=== PATIENT | male | born 1970 | race Asian ===

== ENCOUNTER 2016-08-23 22:00 | Emergency (ER) | payer OTHER ==
[~2016-08-23] VITALS: Ht 167.6 cm; Wt 109.0 kg
[2016-08-23 22:08] VITALS: TEMP 37.1; Ht 167.6 cm; Wt 109.0 kg
--- NOTE | 2016-08-23 22:45 | EMERGENCY ROOM VISIT NOTE ---
History Report prepared by Tequila: Shala Smith Under the Supervision of: Dr. Giselle Pineda M.D. First contact with patient: 22:17 Chief Complaint: SHORTNESS OF BREATH Stated Complaint: SOB Nursing Triage Summary: see triage note. pt c/o sob and acid reflux History of Present Illness The patient is a 45 year old male who presents to the Emergency Room with complaints of constant shortness of breath beginning a few weeks ago. The patient states that he has been having pain with eating for the last 3 weeks. He reports that he tried to quit smoking 1 month ago and was seen here for a panic attack from quitting smoking. The patient notes associated belching, constipation, acid reflux, right sided slight abdominal pain. He denies any vomiting. Source of History: patient Onset: a few weeks ago Position: other (global) Quality: other (SOB) Timing: constant Modifying Factors (Worsening): eating Associated Symptoms: + abdominal pain, No vomiting Note: The patient notes associated belching, constipation, acid reflux. Review of Systems See HPI for pertinent positives & negatives. A total of 10 systems reviewed and were otherwise negative. 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 Family History Diabetes mellitus Hypertension Social History Smoking Status: Current Every Day Smoker Alcohol Use: none Drug Use: none Housing Status: lives alone Occupation Status: disabled Current/Historical Medications Scheduled Pantoprazole (Protonix), 40 MG PO DAILY Allergies Coded Allergies: No Known Allergies (Unverified , 08/23/16) Physical Exam Vital Signs Date Time Temp Pulse Resp B/P Pulse Ox O2 Delivery O2 Flow Rate FiO2 08/24/16 00:53 87 18 117/83 96 08/23/16 23:02 85 22 129/97 99 Room Air 08/23/16 22:30 87 08/23/16 22:17 Room Air 100 08/23/16 22:08 37.1 98 24 131/96 100 Room Air Physical Exam Vital signs reviewed. General: Well-appearing, obese, anxious, rambling. HEENT: No scleral icterus, PERRLA, neck supple. Atraumatic. Cardiovascular: Regular rate and rhythm, no extra sounds. Pulmonary: Clear to auscultation bilaterally, normal work of breathing. Abdomen: Soft, nontender, nondistended, positive bowel sounds. Musculoskeletal: Atraumatic, no peripheral edema. Neurologic: Patient awake alert and oriented x 3 Skin: Warm, dry, no rash Medical Decision & Procedures ER Provider Diagnostic Interpretation: US results as stated below per my review and radiologist interpretation: US RUQ Cholelithiasis. Contracted gallbladder with nonspecific borderline gallbladder wall thickness. Common bile duct within normal limits. Fatty Liver with hypoechogenicity adjacent to the gallbladder fossa, possible focal fatty sparing. Small right renal cyst. No right hydronephrosis. Radiologist: Jazzmine Lozano M.D. Laboratory Results 08/23/16 22:52 Red Blood Count 5.28, Mean Corpuscular Volume 89.2, Mean Corpuscular Hemoglobin 30.7, Mean Corpuscular Hemoglobin Concent 34.4, Mean Platelet Volume 9.2, Neutrophils (%) (Auto) 64.7, Lymphocytes (%) (Auto) 28.3, Monocytes (%) (Auto) 5.2, Eosinophils (%) (Auto) 1.3, Basophils (%) (Auto) 0.3, Neutrophils # (Auto) 8.16, Lymphocytes # (Auto) 3.57, Monocytes # (Auto) 0.66, Eosinophils # (Auto) 0.17, Basophils # (Auto) 0.04 08/23/16 22:52 Test 08/23/16 22:52 White Blood Count 12.63 K/uL (4.8-10.8) Red Blood Count 5.28 M/uL (4.7-6.1) Hemoglobin 16.2 g/dL (14.0-18.0) Hematocrit 47.1 % (42-52) Mean Corpuscular Volume 89.2 fL (80-100) Mean Corpuscular Hemoglobin 30.7 pg (25-34) Mean Corpuscular Hemoglobin Concent 34.4 g/dl (32-36) Platelet Count 314 K/uL (130-400) Mean Platelet Volume 9.2 fL (7.4-10.4) Neutrophils (%) (Auto) 64.7 % Lymphocytes (%) (Auto) 28.3 % Monocytes (%) (Auto) 5.2 % Eosinophils (%) (Auto) 1.3 % Basophils (%) (Auto) 0.3 % Neutrophils # (Auto) 8.16 K/uL (1.4-6.5) Lymphocytes # (Auto) 3.57 K/uL (1.2-3.4) Monocytes # (Auto) 0.66 K/uL (0.11-0.59) Eosinophils # (Auto) 0.17 K/uL (0-0.5) Basophils # (Auto) 0.04 K/uL (0-0.2) RDW Standard Deviation 46.2 fL (36.4-46.3) RDW Coefficient of Variation 14.1 % (11.5-14.5) Immature Granulocyte % (Auto) 0.2 % Immature Granulocyte # (Auto) 0.03 K/uL (0.00-0.02) Anion Gap 10.0 mmol/L (3-11) Est Creatinine Clear Calc Drug Dose 143.2 ml/min Estimated GFR () 128.8 Estimated GFR (Non- 111.1 BUN/Creatinine Ratio 17.4 (10-20) Calcium Level 9.0 mg/dl (8.5-10.1) Magnesium Level 2.5 mg/dl (1.8-2.4) Total Bilirubin 0.6 mg/dl (0.2-1) Direct Bilirubin 0.2 mg/dl (0-0.2) Aspartate Amino Transf (AST/SGOT) 28 U/L (15-37) Alanine Aminotransferase (ALT/SGPT) 61 U/L (12-78) Alkaline Phosphatase 78 U/L (45-117) Total Creatine Kinase 114 U/L (39-308) Creatine Kinase MB < 0.5 ng/ml (0.5-3.6) Creatine Kinase MB Ratio (0-3.0) Troponin I < 0.015 ng/ml (0-0.045) Total Protein 7.6 gm/dl (6.4-8.2) Albumin 3.7 gm/dl (3.4-5.0) Laboratory results per my review. ECG Indication: other (SOB) Rate (beats per minute): 93 Rhythm: normal sinus Findings: no acute ischemic change, no ectopy, other (sinus arrythmia, poor quality baseline for interpretation) ED Course 2225: Past medical records reviewed. The patient was evaluated in room A12. A complete history and physical examination was performed. 2246: Vistaril Tab 50mg PO. 0020: I reevaluated the patient and discussed his test results. 0040: Upon reevaluation, the patient appeared to have improvement of his symptoms. I discussed findings with the patient. He verbalized agreement of the treatment plan. The patient was discharged home. Medical Decision Chest pain: Acute coronary syndrome, pulmonary embolus, aortic dissection, musculoskeletal pain, pneumonia, pleural effusion, pneumothorax, anxiety, OCD, metabolic abnormality, substance abuse. This patient was evaluated and appeared to be significantly anxious. IV access was obtained and laboratory work was drawn. 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 Laboratory work reveals no significant abnormalities. Ultrasound of right upper quadrant reveals cholelithiasis without evidence of acute cholecystitis. The patient had a chest x-ray several days ago, therefore no repeat film was obtained. Patient was advised to restart his PPI, he had many questions regarding his gastritis, "gas," and a link to his shortness of breath. The patient has had many visits to the emergency department recently. I do think that anxiety is a great part of his presentation. He states he has seen mental health but feels that he went "too far" as he does not feel he has any psychological issues. The patient was encouraged to restart his PPI, given a prescription for Protonix 40 mg daily. He will follow-up with his primary care provider and GI if symptoms persist. He will return to the ER for worsening of symptoms or any medical concerns. Impression Primary Impression: Cholelithiasis Additional Impressions: SOB (shortness of breath), Gastritis Scribe Attestation The scribe's documentation has been prepared under my direction and personally reviewed by me in its entirety. I confirm that the note above accurately reflects all work, treatment, procedures, and medical decision making performed by me. Departure Information Dispostion Home / Self-Care Prescriptions Pantoprazole (Protonix) 40 Mg Tab 40 MG PO DAILY, #30 TAB Prov: Giselle Pineda M.D. 08/24/16 Referrals No Doctor, Assigned (PCP) Forms HOME CARE DOCUMENTATION FORM, IMPORTANT VISIT INFORMATION Patient Instructions A Signature Page, My [facility] Additional Instructions Diagnosis: Cholelithiasis, shortness of breath, gastritis Protonix 40 mg daily. Avoid fatty foods. Drink plenty of clear fluids. Follow-up with your primary care provider as scheduled this week. Return to the ER for worsening of symptoms or any medical concerns.
[2016-08-23] MEDS ORDERED: hydrOXYzine HCL 25 MG TAB PO STA (22:46)
[2016-08-23 23:00] LABS: BASO % 0.3 %; BASO ABS # 0.04 K/uL (0-0.2); COMPLETE YES; EOS % 1.3 %; HEMATOCRIT 47.1 % (42-52); IG% 0.2 %; LYMPH % 28.3 %; LYMPH ABS # 3.57 K/uL (1.2-3.4); MEAN CELL VOLUME 89.2 fL (80-100); MEAN CORPUSCULAR HEMOGLOBIN 30.7 pg (25-34); MEAN CORPUSCULAR HGB CONC 34.4 g/dl (32-36); MEAN PLATELET VOLUME 9.2 fL (7.4-10.4); MONO % 5.2 %; NEUT % 64.7 %; PLATELET COUNT 314 K/uL (130-400); RED BLOOD COUNT 5.28 M/uL (4.7-6.1); WHITE BLOOD COUNT 12.63 K/uL (4.8-10.8)
[2016-08-23 23:19] LABS: ALT/SGPT 61 U/L (12-78); BLOOD UREA NITROGEN 13 mg/dl (7-18); BUN/CREATININE RATIO 17.4 (10-20); CARBON DIOXIDE 27 mmol/L (21-32); CHLORIDE 104 mmol/L (98-107); CREATININE 0.77 mg/dl (0.60-1.40); GLUCOSE 101 mg/dl (70-99); MAGNESIUM 2.5 mg/dl (1.8-2.4); POTASSIUM 3.7 mmol/L (3.5-5.1); SODIUM 141 mmol/L (136-145)
[2016-08-23 23:24] LABS: ALKALINE PHOSPHATASE 78 U/L (45-117); AST/SGOT 28 U/L (15-37)
[2016-08-24] MEDS ORDERED: PANT40TA PO (00:18)
[2016-08-24 00:53] VITALS: BP 117/83; PULSE 87; O2SAT 96
--- NOTE | 2016-08-24 06:37 | DIAGNOSTIC IMAGING REPORT ---
BILIARY ULTRASOUND CLINICAL HISTORY: Right upper quadrant abdominal pain COMPARISON STUDY: No previous studies for comparison. FINDINGS: The pancreas appears normal as visualized. The liver is of increased echogenicity. This is a nonspecific finding most often seen in hepatic steatosis. There is an 18 mm hypoechoic focus within the right lobe of the liver. There is no right-sided hydronephrosis. There is an 16 mm hypoechoic right renal nodule, likely representing a cyst although the lesion does contain a few internal echoes. There is cholelithiasis. There is borderline gallbladder wall thickening. There is no ductal dilatation. The common bile duct measures 5 mm. IMPRESSION: 1. Increased hepatic echogenicity, consistent with hepatic steatosis 2. 18 mm hepatic lesion adjacent to the gallbladder. Diagnostic considerations include focal fatty sparing versus a true mass. 3. Cholelithiasis. Borderline gallbladder wall thickening. 4. No evidence of ductal dilatation 5. 16 mm hypoechoic right renal lesion, likely representing a cyst, although the lesion does contain a few internal echoes. Electronically signed by: Zach Steinberg M.D. 08/24/2016 6:36 AM
== END 2016-08-24 00:55 | disposition home or self-care (01) ==
LOC: C.EDB 22:02 → C.EDA 08-24 00:55
DX: K80.20 Calculus of gallbladder without cholecystitis without obstruction (principal); R06.02 Shortness of breath; K29.70 Gastritis, unspecified, without bleeding; F17.200 Nicotine dependence, unspecified, uncomplicated; K21.9 Gastro-esophageal reflux disease without esophagitis

== ENCOUNTER 2016-10-06 03:08 | Emergency (ER) | payer OTHER ==
[~2016-10-06] VITALS: Ht 167.6 cm; Wt 109.2 kg
[~2016-10-06 03:08] MED LIST: PANT40TA PO
[2016-10-06 03:14] VITALS: TEMP 37.2; Ht 167.6 cm; Wt 109.2 kg
[2016-10-06] MEDS ORDERED: ALUMINUM/MAGNESIUM SUSP 30 ML UDC PO STA (03:33)
[2016-10-06] MEDS ORDERED: KETOROLAC TROMETHAMINE 30 MG/ML VIAL IV STA (03:33)
[2016-10-06] MEDS ORDERED: LIDOCAINE HCL 2% VISC SOLN 20 ML UDC PO STA (03:33)
[2016-10-06 04:22] VITALS: O2SAT 94
[2016-10-06 04:33] LABS: BASO % 0.3 %; BASO ABS # 0.04 K/uL (0-0.2); COMPLETE YES; HEMATOCRIT 46.1 % (42-52); IG% 0.2 %; LYMPH ABS # 3.81 K/uL (1.2-3.4); MEAN CORPUSCULAR HEMOGLOBIN 31.7 pg (25-34); MEAN CORPUSCULAR HGB CONC 35.6 g/dl (32-36); MEAN PLATELET VOLUME 9.3 fL (7.4-10.4); MONO % 6.1 %; NEUT % 63.4 %; PLATELET COUNT 315 K/uL (130-400); RED BLOOD COUNT 5.18 M/uL (4.7-6.1); WHITE BLOOD COUNT 13.15 K/uL (4.8-10.8)
[2016-10-06] MEDS ORDERED: NICO14DI9 TOP (04:35)
[2016-10-06 04:43] LABS: PROTHROMBIN TIME (PATIENT) 10.7 SECONDS (9.0-12.0)
[2016-10-06 04:50] LABS: ALT/SGPT 54 U/L (12-78); AST/SGOT 26 U/L (15-37); BLOOD UREA NITROGEN 12 mg/dl (7-18); BUN/CREATININE RATIO 14.9 (10-20); CALCIUM 8.7 mg/dl (8.5-10.1); CARBON DIOXIDE 27 mmol/L (21-32); CHLORIDE 105 mmol/L (98-107); CREATININE 0.82 mg/dl (0.60-1.40); GLUCOSE 105 mg/dl (70-99); POTASSIUM 3.7 mmol/L (3.5-5.1); SODIUM 140 mmol/L (136-145)
[2016-10-06 05:00] LABS: ALKALINE PHOSPHATASE 75 U/L (45-117); CKMB/CK RATIO 0.6 (0-3.0); THYROID STIMULATING HORMONE 0.735 uIu/ml (0.300-4.500)
--- NOTE | 2016-10-06 05:22 | EMERGENCY ROOM VISIT NOTE ---
History Report prepared by Chrisibpatrice: Ronny Montez Under the Supervision of: Dr. Michael Xiong D.O. First contact with patient: 03:23 Chief Complaint: GI ASSESSMENT Stated Complaint: STOMACH PAIN History of Present Illness The patient is a 46 year old male who presents to the Emergency Room with complaints of persistent acid reflux for the past several days. The patient notes that when he wakes up in the morning he feels chest pain and shortness of breath. He also complains of headache and has increased mucous in his esophagus that causes him to cough. The patient notes increased frequency of burping. The patient attributes his symptoms to his stomach and does not feel that his symptoms are flu-related. The patient was taking Protonix 40 mg prior to being switched to Omeprazole 10 mg 4-5 days ago. The patient has a family history of stomach problems. Source of History: patient Onset: several days Position: other (GI) Quality: other (acid reflux) Timing: other (persistent) Associated Symptoms: + SOB, + chest pain, + cough Review of Systems See HPI for pertinent positives & negatives. A total of 10 systems reviewed and were otherwise negative. 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 Family History Diabetes mellitus Hypertension Social History Smoking Status: Never Smoker Alcohol Use: none Drug Use: none Housing Status: lives alone Occupation Status: disabled Current/Historical Medications Scheduled Nicotine (Nicotine), 1 PATCH TOP DAILY Pantoprazole (Protonix), 40 MG PO DAILY Allergies Coded Allergies: No Known Allergies (Unverified , 10/06/16) Physical Exam Vital Signs Date Time Temp Pulse Resp B/P Pulse Ox O2 Delivery O2 Flow Rate FiO2 10/06/16 05:49 81 16 129/81 99 10/06/16 04:22 94 Room Air 10/06/16 04:22 87 18 138/84 98 Room Air 10/06/16 03:50 96 10/06/16 03:14 37.2 101 16 128/87 98 Room Air Physical Exam CONSTITUTIONAL/VITAL SIGNS: Reviewed / noted above. GENERAL: Non-toxic in appearance. INTEGUMENTARY: Warm, dry, and [place]. HEAD: Normocephalic. EYES: without scleral icterus or trauma. ENT/OROPHARYNX: clear and moist. LYMPHADENOPATHY/NECK: Is supple without lymphadenopathy or meningismus. RESPIRATORY: Lungs clear and equal. CARDIOVASCULAR: Regular rate and rhythm. GI/ABDOMEN: Soft and nontender. No organomegaly or pulsatile mass. No rebound or guarding. Normal bowel sounds. EXTREMITIES: Warm and well perfused. BACK: No CVA tenderness. NEUROLOGICAL: Intact without focal deficits. PSYCHIATRIC: normal affect. MUSCULOSKELETAL: Normally developed with good muscle tone. Medical Decision & Procedures ER Provider Diagnostic Interpretation: X ray results and stated below per my interpretation. CHEST ONE VIEW PORTABLE: No acute disease, no pneumothorax, no pneumonia. Laboratory Results 10/06/16 04:05 Red Blood Count 5.18, Mean Corpuscular Volume 89.0, Mean Corpuscular Hemoglobin 31.7, Mean Corpuscular Hemoglobin Concent 35.6, Mean Platelet Volume 9.3, Neutrophils (%) (Auto) 63.4, Lymphocytes (%) (Auto) 29.0, Monocytes (%) (Auto) 6.1, Eosinophils (%) (Auto) 1.0, Basophils (%) (Auto) 0.3, Neutrophils # (Auto) 8.35, Lymphocytes # (Auto) 3.81, Monocytes # (Auto) 0.80, Eosinophils # (Auto) 0.13, Basophils # (Auto) 0.04 10/06/16 04:05 Test 10/06/16 04:05 White Blood Count 13.15 K/uL (4.8-10.8) Red Blood Count 5.18 M/uL (4.7-6.1) Hemoglobin 16.4 g/dL (14.0-18.0) Hematocrit 46.1 % (42-52) Mean Corpuscular Volume 89.0 fL (80-100) Mean Corpuscular Hemoglobin 31.7 pg (25-34) Mean Corpuscular Hemoglobin Concent 35.6 g/dl (32-36) Platelet Count 315 K/uL (130-400) Mean Platelet Volume 9.3 fL (7.4-10.4) Neutrophils (%) (Auto) 63.4 % Lymphocytes (%) (Auto) 29.0 % Monocytes (%) (Auto) 6.1 % Eosinophils (%) (Auto) 1.0 % Basophils (%) (Auto) 0.3 % Neutrophils # (Auto) 8.35 K/uL (1.4-6.5) Lymphocytes # (Auto) 3.81 K/uL (1.2-3.4) Monocytes # (Auto) 0.80 K/uL (0.11-0.59) Eosinophils # (Auto) 0.13 K/uL (0-0.5) Basophils # (Auto) 0.04 K/uL (0-0.2) RDW Standard Deviation 45.7 fL (36.4-46.3) RDW Coefficient of Variation 13.9 % (11.5-14.5) Immature Granulocyte % (Auto) 0.2 % Immature Granulocyte # (Auto) 0.02 K/uL (0.00-0.02) Prothrombin Time 10.7 SECONDS (9.0-12.0) Prothromb Time International Ratio 1.0 (0.9-1.1) Activated Partial Thromboplast Time 25.4 SECONDS (21.0-31.0) Partial Thromboplastin Ratio 1.0 Anion Gap 8.0 mmol/L (3-11) Est Creatinine Clear Calc Drug Dose 133.2 ml/min Estimated GFR () 124.6 Estimated GFR (Non- 107.5 BUN/Creatinine Ratio 14.9 (10-20) Calcium Level 8.7 mg/dl (8.5-10.1) Total Bilirubin 0.9 mg/dl (0.2-1) Direct Bilirubin 0.2 mg/dl (0-0.2) Aspartate Amino Transf (AST/SGOT) 26 U/L (15-37) Alanine Aminotransferase (ALT/SGPT) 54 U/L (12-78) Alkaline Phosphatase 75 U/L (45-117) Total Creatine Kinase 78 U/L (39-308) Creatine Kinase MB 0.5 ng/ml (0.5-3.6) Creatine Kinase MB Ratio 0.6 (0-3.0) Troponin I < 0.015 ng/ml (0-0.045) Total Protein 7.7 gm/dl (6.4-8.2) Albumin 3.8 gm/dl (3.4-5.0) Lipase 158 U/L (73-393) Thyroid Stimulating Hormone (TSH) 0.735 uIu/ml (0.300-4.500) Laboratory results as stated above per my review. Medications Administered Medications (Trade) Dose Ordered Sig/Laron Route Start Time Stop Time Status Last Admin Dose Admin Al Hydroxide/Mg Hydroxide (Maalox Susp) 30 ml NOW STAT PO 10/06/16 03:33 10/06/16 03:35 DC 10/06/16 03:53 30 ML Lidocaine HCl (Viscous Lidocaine 2% Soln) 10 ml NOW STAT PO 10/06/16 03:33 10/06/16 03:35 DC 10/06/16 03:54 10 ML Ketorolac Tromethamine (Toradol Inj) 30 mg NOW STAT IV 10/06/16 03:33 10/06/16 03:35 DC 10/06/16 04:20 30 MG ECG Indication: abdominal pain Rate (beats per minute): 87 Rhythm: normal sinus Findings: no acute ischemic change, no ectopy ED Course 0325: Previous medical records were reviewed. The patient was evaluated in room B10. A complete history and physical examination was performed. 0333: Toradol 30 mg IV, Lidocaine 10 ml PO, Maalox 30 ml PO. 0530: Reassessed the patient. Discussed the findings with him. He verbalized understanding and agreement of the treatment plan. The patient is ready for discharge. Medical Decision Differential considered: pancreatitis, hepatitis, or acute cholecystitis, AAA, UTI, pyelonephritis, kidney stones, appendicitis, diverticulitis, shingles, bowel obstruction mesenteric ischemia, intussusception,hernia, testicular torsion, ovarian torsion, ruptured ovarian cyst,ectopic , . This is a 46-year-old male who presents to the ED with a chief complaint of having a cough as well as some achiness and increased mucus over the past few days. He states that his proton pump inhibitor was recently changed to different brand. He is not sure if this is related. The patient presents for evaluation of his symptoms. His vital signs are normal. His physical exam was normal. An EKG shows a normal sinus rhythm. CBC is unremarkable. Chem should panel is normal. Troponin is negative. TSH is normal. Chest x-ray did not show acute disease. He did with Toradol and a GI cocktail. He is told the results and felt to be stable for discharge. Impression Primary Impression: Cough Additional Impression: Precordial chest pain Scribe Attestation The scribe's documentation has been prepared under my direction and personally reviewed by me in its entirety. I confirm that the note above accurately reflects all work, treatment, procedures, and medical decision making performed by me. Departure Information Dispostion Home / Self-Care Referrals Hung Cuevas MD (PCP) Forms HOME CARE DOCUMENTATION FORM, IMPORTANT VISIT INFORMATION Patient Instructions My [facility] Additional Instructions Follow-up with your doctor for further care and evaluation in 1-2 days. Return to the emergency department for worsening or new symptoms or any concerns.. Problem Qualifiers
[2016-10-06 05:49] VITALS: BP 129/81; PULSE 81; O2SAT 99
--- NOTE | 2016-10-06 08:01 | DIAGNOSTIC IMAGING REPORT ---
SINGLE VIEW CHEST CLINICAL HISTORY: Fever. Sepsis. FINDINGS: An AP, portable, upright chest radiograph is compared to study dated 08/08/2016. The examination is degraded by portable technique and patient rotation. The heart appears enlarged. The pulmonary vasculature is noncongested. Chronic interstitial thickening is unchanged. No airspace consolidation, large pleural effusion, or pneumothorax is seen. The bony thorax is grossly intact. IMPRESSION: Mild cardiac enlargement with no acute cardiopulmonary abnormality. Electronically signed by: Rik Pizarro M.D. 10/06/2016 8:00 AM Dictated Date/Time: 10/06/2016 7:59 AM
[2016-10-07] MEDS ORDERED: AZITTAB PO (13:36)
[2016-10-07] MEDS ORDERED: HYDR5SYP11 PO (13:36)
== END 2016-10-06 05:50 | disposition home or self-care (01) ==
LOC: C.EDB 03:09
DX: R07.2 Precordial pain (principal); R05 Cough; Z79.899 Other long term (current) drug therapy; Z83.3 Family history of diabetes mellitus; Z82.49 Family history of ischemic heart disease and other diseases of the circulatory system

== ENCOUNTER 2016-10-07 11:06 | Emergency (ER) | payer OTHER ==
[~2016-10-07] VITALS: Ht 167.6 cm; Wt 108.0 kg
[~2016-10-07 11:06] MED LIST changes: +NICO14DI9 TOP
[2016-10-07 11:15] VITALS: Ht 167.6 cm; Wt 108.0 kg
[2016-10-07] MEDS ORDERED: SODIUM CHLORIDE 0.9% 1000ML 1,000 ML IV STA (11:38)
--- NOTE | 2016-10-07 11:42 | EMERGENCY ROOM VISIT NOTE ---
History Report prepared by Tequila: Krysta Alexandre Under the Supervision of: Dr. Domo Howell M.D. First contact with patient: 11:31 Chief Complaint: RESPIRATORY PROBLEMS Stated Complaint: CAN'T BREATHE Nursing Triage Summary: triage note: pt sent over from PMD office [place] with SOB pt was seen here yesterday with same complaint + cough that is productive History of Present Illness The patient is a 46 year old male who presents to the Emergency Room with complaints of persistent respiratory problems that began prior to arrival. He currently rates his discomfort as a 10/10 in severity. The patient states that he was evaluated yesterday for similar symptoms. He states that he has had a headache, decreased appetite, shortness of breath, productive cough, and cold hands and feet. The patient states that several months ago he had a work up for his gallbladder that revealed gallstones. He states that everything came back normal. The patient states that he has been anxious, which has worsened his symptoms. He states that his PCP has suggested that he follows with a psychiatrist. The patient states that he stopped smoking two weeks ago. He additionally notes multiple sick contacts through his job. Source of History: patient Onset: prior to arrival Position: other (global) Symptom Intensity: 10/10 Quality: other (respiratory problems) Timing: other (persistent) Modifying Factors (Worsening): other (anxiety) Associated Symptoms: + SOB, + cough, + headache Note: Associated Symptoms: decreased appetite, cold hands and feet. Review of Systems See HPI for pertinent positives & negatives. A total of 10 systems reviewed and were otherwise negative. 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 Family History Diabetes mellitus Hypertension Social History Smoking Status: Former Smoker Alcohol Use: none Drug Use: none Housing Status: lives alone Occupation Status: disabled Current/Historical Medications Scheduled Azithromycin (Zithromax Z-Santiago), 1 PKT PO UD Nicotine (Nicotine), 1 PATCH TOP DAILY Pantoprazole (Protonix), 40 MG PO DAILY Scheduled PRN Hydrocodone W/ Homatropine (Hycodan 5/1.5MG 5 Ml), 5-10 ML PO Q4H PRN for Cough Allergies Coded Allergies: No Known Allergies (Unverified , 10/06/16) Physical Exam Vital Signs Date Time Temp Pulse Resp B/P Pulse Ox O2 Delivery O2 Flow Rate FiO2 10/07/16 13:52 10/07/16 13:49 36.5 78 18 120/79 98 10/07/16 12:33 78 18 120/79 98 Room Air 10/07/16 11:15 36.5 108 22 132/93 99 Physical Exam GENERAL: Patient is severely anxious appearing, walking around the room. Periodic dry cough. HEENT: No acute trauma, normocephalic atraumatic, mucous membranes moist, no nasal congestion, no scleral icterus. NECK: No stridor, no adenopathy, no meningismus, trachea is midline. LUNGS: No dyspnea. Clear to auscultation and equal bilaterally. No wheeze, no rhonchi. HEART: Regular rate and rhythm. No murmurs, rubs, gallops appreciated. ABDOMEN: Soft, nontender, bowel sounds positive, no masses appreciated, no peritonitis. BACK: No midline tenderness, no CVA tenderness EXTREMITIES: Normal motion all extremities, no cyanosis, no edema. NEUROLOGIC: Alert and oriented, no acute motor or sensory deficits, no focal weakness, cranial nerves grossly intact. SKIN: No rash, no jaundice, no diaphoresis. Medical Decision & Procedures ER Provider Diagnostic Interpretation: X ray results and stated below per my interpretation and radiologist interpretation. Other radiology results and stated below per my review and radiologist interpretation: CT ANGIOGRAPHY OF THE CHEST, PULMONARY EMBOLUS PROTOCOL CLINICAL HISTORY: Chest pain. Difficulty breathing. COMPARISON STUDY: Chest radiographs October 06, 2016 and October 07, 2016. TECHNIQUE: Following IV administration of 108 mL of Optiray-320, helical axial images of the chest were obtained utilizing the pulmonary embolus protocol. Maximal intensity projections and sagittal and coronal reformats were viewed on an independent 3D workstation. IV contrast was administered without complication. CT DOSE: 616.89 mGy.cm FINDINGS: No pulmonary emboli are identified. There is no evidence of thoracic aortic dissection. The size of the heart is normal. No enlarged thoracic lymph nodes are present. Central airways are patent. There is no consolidation to suggest pneumonia. No pneumothorax or pleural effusion is present. Bony thorax is unremarkable. There may be fatty infiltration of the liver. IMPRESSION: 1. No pulmonary emboli identified. 2. No acute intrathoracic findings. Electronically signed by: Cy Fernandez M.D. 10/07/2016 1:19 PM Dictated Date/Time: 10/07/2016 1:15 PM CHEST ONE VIEW PORTABLE CLINICAL HISTORY: Chest pain. COMPARISON STUDY: Chest radiograph October 06, 2016. FINDINGS: Lung volumes are normal. There is no pneumothorax or pleural effusion. Pulmonary vascularity is normal. There is no consolidation. There may be mild cardiomegaly. IMPRESSION: 1. No acute cardiopulmonary findings. 2. Mild cardiomegaly. Electronically signed by: Cy Fernandez M.D. 10/07/2016 11:55 AM Dictated Date/Time: 10/07/2016 11:54 AM Laboratory Results 10/07/16 11:56 Red Blood Count 5.13, Mean Corpuscular Volume 88.5, Mean Corpuscular Hemoglobin 31.0, Mean Corpuscular Hemoglobin Concent 35.0, Mean Platelet Volume 9.3, Neutrophils (%) (Auto) 55.2, Lymphocytes (%) (Auto) 36.2, Monocytes (%) (Auto) 6.4, Eosinophils (%) (Auto) 1.6, Basophils (%) (Auto) 0.4, Neutrophils # (Auto) 7.66, Lymphocytes # (Auto) 5.01, Monocytes # (Auto) 0.88, Eosinophils # (Auto) 0.22, Basophils # (Auto) 0.05 10/07/16 11:56 Test 10/07/16 11:56 White Blood Count 13.85 K/uL (4.8-10.8) Red Blood Count 5.13 M/uL (4.7-6.1) Hemoglobin 15.9 g/dL (14.0-18.0) Hematocrit 45.4 % (42-52) Mean Corpuscular Volume 88.5 fL (80-100) Mean Corpuscular Hemoglobin 31.0 pg (25-34) Mean Corpuscular Hemoglobin Concent 35.0 g/dl (32-36) Platelet Count 321 K/uL (130-400) Mean Platelet Volume 9.3 fL (7.4-10.4) Neutrophils (%) (Auto) 55.2 % Lymphocytes (%) (Auto) 36.2 % Monocytes (%) (Auto) 6.4 % Eosinophils (%) (Auto) 1.6 % Basophils (%) (Auto) 0.4 % Neutrophils # (Auto) 7.66 K/uL (1.4-6.5) Lymphocytes # (Auto) 5.01 K/uL (1.2-3.4) Monocytes # (Auto) 0.88 K/uL (0.11-0.59) Eosinophils # (Auto) 0.22 K/uL (0-0.5) Basophils # (Auto) 0.05 K/uL (0-0.2) RDW Standard Deviation 45.1 fL (36.4-46.3) RDW Coefficient of Variation 13.9 % (11.5-14.5) Immature Granulocyte % (Auto) 0.2 % Immature Granulocyte # (Auto) 0.03 K/uL (0.00-0.02) Anion Gap 11.0 mmol/L (3-11) Est Creatinine Clear Calc Drug Dose 124.8 ml/min Estimated GFR () 121.7 Estimated GFR (Non- 105.0 BUN/Creatinine Ratio 17.6 (10-20) Calcium Level 9.0 mg/dl (8.5-10.1) Total Creatine Kinase 77 U/L (39-308) Creatine Kinase MB < 0.5 ng/ml (0.5-3.6) Creatine Kinase MB Ratio (0-3.0) Troponin I < 0.015 ng/ml (0-0.045) Laboratory results as reviewed by me. Medications Administered Medications (Trade) Dose Ordered Sig/Laron Route Start Time Stop Time Status Last Admin Dose Admin Sodium Chloride (Nss 1000ml) 1,000 ml @ 999 mls/hr Q1H1M STAT IV 10/07/16 11:38 10/07/16 12:38 DC 10/07/16 11:57 999 MLS/HR ECG Indication: SOB/dyspnea Rate (beats per minute): 78 Rhythm: normal sinus Findings: no acute ischemic change, no ectopy ED Course 1134: The patient was evaluated in room C3. A complete history and physical exam was performed. 1138: Ordered Sodium Chloride 1000 ml @ 999 mls/hr IV. 1329: I reevaluated the patient and he is resting. I discussed the exam findings with him. He states that he has an appointment scheduled tomorrow with his PCP and states that he would like to try antibiotics and a cough medicine tonight. He verbalized complete understanding and agreement. He is ready to go home. Medical Decision Differential: Infectious, Reactive Airway Disease, Pneumonia, Pneumothorax, COPD , CHF, ACS, Pulmonary Embolism, MSK, GI, Dissection, amongst other etiologies entertained. 46 yr old male arrives very anxious about cough/shortness of breath that notes ongoing for last 3 days though after discussing with him seems clear much longer than this (admits researching this for years, and for seeing many physicians in past for same symptoms). Other than clearly anxious exam is benign. Just here yesterday and as reportedly sent by PCP went ahead with CT PE study which is negative for acute findings. Mild leukocytosis which is similar to yesterdays. His vitals are OK. he is very anxious that there is something wrong with him and I spent several prolonged discussions with patient explaining limitations of ED. He meets no criteria for admission. He already has an appointment with his PCP. With his smoking history and reported worsening shob/cough over last few days will treat for Bronchitis though will hold on Prednisone as he notes bad gerd issues. He has no evidence that this is ACS nor CHF. Does not appear to be COPD and with normal CT PE no evidence of embolism nor dissection. Will try azithro for bronchitis treatment and send with rx hycodan as well, if anything this may let him relax some. Impression Primary Impression: Shortness of breath Scribe Attestation The scribe's documentation has been prepared under my direction and personally reviewed by me in its entirety. I confirm that the note above accurately reflects all work, treatment, procedures, and medical decision making performed by me. Departure Information Dispostion Home / Self-Care Prescriptions Hydrocodone W/ Homatropine (HYCODAN 5/1.5MG 5 ML) 1 Syp Syp 5-10 ML PO Q4H Y for Cough, #120 ML Prov: Domo Howell M.D. 10/07/16 Azithromycin (ZITHROMAX Z-SANTIAGO) 250 Mg Tab 1 PKT PO UD, #1 PKT Prov: Domo Howell M.D. 10/07/16 Referrals No Doctor, Assigned (PCP) Forms HOME CARE DOCUMENTATION FORM, IMPORTANT VISIT INFORMATION Patient Instructions My [facility], Shortness of Breath Control Stress
--- NOTE | 2016-10-07 11:56 | DIAGNOSTIC IMAGING REPORT ---
CHEST ONE VIEW PORTABLE CLINICAL HISTORY: Chest pain. COMPARISON STUDY: Chest radiograph October 06, 2016. FINDINGS: Lung volumes are normal. There is no pneumothorax or pleural effusion. Pulmonary vascularity is normal. There is no consolidation. There may be mild cardiomegaly. IMPRESSION: 1. No acute cardiopulmonary findings. 2. Mild cardiomegaly. Electronically signed by: Cy Fernandez M.D. 10/07/2016 11:55 AM Dictated Date/Time: 10/07/2016 11:54 AM
[2016-10-07 12:14] LABS: HEMATOCRIT 45.4 % (42-52); MEAN CELL VOLUME 88.5 fL (80-100); MEAN PLATELET VOLUME 9.3 fL (7.4-10.4); PLATELET COUNT 321 K/uL (130-400); RED BLOOD COUNT 5.13 M/uL (4.7-6.1); WHITE BLOOD COUNT 13.85 K/uL (4.8-10.8)
[2016-10-07 12:35] LABS: BASO % 0.4 %; BASO ABS # 0.05 K/uL (0-0.2); COMPLETE YES; EOS % 1.6 %; IG% 0.2 %; LYMPH % 36.2 %; LYMPH ABS # 5.01 K/uL (1.2-3.4); MONO % 6.4 %; NEUT % 55.2 %
[2016-10-07 12:40] LABS: BLOOD UREA NITROGEN 15 mg/dl (7-18); BUN/CREATININE RATIO 17.6 (10-20); CARBON DIOXIDE 25 mmol/L (21-32); CHLORIDE 104 mmol/L (98-107); CREATININE 0.87 mg/dl (0.60-1.40); GLUCOSE 82 mg/dl (70-99); POTASSIUM 3.6 mmol/L (3.5-5.1); SODIUM 140 mmol/L (136-145)
--- NOTE | 2016-10-07 13:21 | DIAGNOSTIC IMAGING REPORT ---
CT ANGIOGRAPHY OF THE CHEST, PULMONARY EMBOLUS PROTOCOL CLINICAL HISTORY: Chest pain. Difficulty breathing. COMPARISON STUDY: Chest radiographs October 06, 2016 and October 07, 2016. TECHNIQUE: Following IV administration of 108 mL of Optiray-320, helical axial images of the chest were obtained utilizing the pulmonary embolus protocol. Maximal intensity projections and sagittal and coronal reformats were viewed on an independent 3D workstation. IV contrast was administered without complication. CT DOSE: 616.89 mGy.cm FINDINGS: No pulmonary emboli are identified. There is no evidence of thoracic aortic dissection. The size of the heart is normal. No enlarged thoracic lymph nodes are present. Central airways are patent. There is no consolidation to suggest pneumonia. No pneumothorax or pleural effusion is present. Bony thorax is unremarkable. There may be fatty infiltration of the liver. IMPRESSION: 1. No pulmonary emboli identified. 2. No acute intrathoracic findings. Electronically signed by: Cy Fernandez M.D. 10/07/2016 1:19 PM Dictated Date/Time: 10/07/2016 1:15 PM
[2016-10-07] MEDS ORDERED: AZITTAB PO (13:36)
[2016-10-07] MEDS ORDERED: HYDR5SYP11 PO (13:36)
[2016-10-07 13:49] VITALS: BP 120/79; PULSE 78; TEMP 36.5; O2SAT 98
== END 2016-10-07 13:52 | disposition home or self-care (01) ==
LOC: C.EDB 11:08 → C.EDC 13:52
DX: R06.02 Shortness of breath (principal); Z87.891 Personal history of nicotine dependence; Z79.899 Other long term (current) drug therapy

== ENCOUNTER 2016-11-04 00:53 | Emergency (ER) | payer OTHER ==
[~2016-11-04] VITALS: Ht 167.6 cm; Wt 108.4 kg
[2016-11-04 01:02] VITALS: TEMP 37.5; Ht 167.6 cm; Wt 108.4 kg
[2016-11-04] MEDS ORDERED: LIDOCAINE HCL 2% VISC SOLN 20 ML UDC MT STA (01:16)
[2016-11-04] MEDS ORDERED: NICO7DIS7 TD (01:46)
--- NOTE | 2016-11-04 02:30 | EMERGENCY ROOM VISIT NOTE ---
History First contact with patient: 01:05 Chief Complaint: SORETHROAT Stated Complaint: THROAT PAIN History of Present Illness The patient is a 46 year old male who presents to the Emergency Room with complaints of sore throat with body aches and pains for the past 2 days. Patient is unsure if there was a temperature. Patient denies chest pain, dyspnea, productive cough, neck stiffness, abdominal pain, vomiting, diarrhea, earache. He is tolerating by mouth fluids and food. No flu shot. No recent travel. Review of Systems See HPI for pertinent positives & negatives. A total of 10 systems reviewed and were otherwise negative. 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 Vital signs stable. GENERAL: Pleasant male, in no acute distress, nondiaphoretic, well-developed well-nourished. SKIN: The skin was without rashes, erythema, edema, or bruising. There is no tenting of the skin. Capillary reflex less than 2 seconds. HEAD: Normocephalic atraumatic. EARS: External auditory canals clear, tympanic membranes pearly allred without erythema or effusion bilaterally. EYES: Pupils equal round and reactive to light and accommodation. Conjunctivae without injection, sclerae without icterus. Extraocular movements intact. NOSE: Patent, turbinates without inflammation or discharge. No sinus tenderness. MOUTH: Mucous membranes moist. Pharynx without erythema or exudate. Uvula midline. Airway patent. Tongue does not deviate. NECK: Supple without nuchal rigidity. No lymphadenopathy. No thyromegaly. Cervical spine is nontender. No JVD. No meningeal signs HEART: Regular rate and rhythm without murmurs gallops or rubs. LUNGS: Clear to auscultation bilaterally without wheezes, rales or rhonchi. No dullness to percussion. No retractions or accessory muscle use. ABDOMEN: Positive bowel sounds x 4. Normal tympanic percussion. Soft, nontender, without masses or organomegaly. Egan sign negative. No guarding or rebound tenderness. MUSCULOSKELETAL: No muscle atrophy, erythema, or edema noted. NEURO: Patient was alert and oriented to person place and time. Normal sensation to light and sharp touch. No focal neurological deficits. Medical Decision & Procedures Laboratory Results Test 11/04/16 01:26 Influenza Type A (RT-PCR) Neg for Influ A (NEG) Influenza Type A Antigen Neg for Influ A (NEG) Influenza Type B Antigen Neg for Influ B (NEG) Influenza Type B (RT-PCR) Neg for Influ B (NEG) ED Course Prior records/ancillary studies reviewed. Triage Nursing notes reviewed. The patient's history was concerning for a sore throat. Differential diagnosis: Etiologies such as viral syndrome, tonsillitis, streptococcal pharyngitis, mononucleosis, peritonsillar abscess, retropharyngeal abscess, otitis, pneumonia , influenza, as well as others were entertained. ER treatment provided: viscous lid po On reassessment the patient felt better. Diagnostics interpreted by me: The labs revealed neg strep test This appears to be consistent with pharyngitis. Patient was demanding an antibiotic. I informed him that he has a virus and antibodies would not be effective. He was persistent on this. I once again strongly encouraged her to try [id number] cold medicines. He seemed displeased with the fact that I would not give him an antibiotic. Patient was neurovascular and neurologically intact. No signs of meningitis. No signs of tonsillar abscess. He is tolerating fluids. He was advised take cold medications as directed and to follow-up family care in a few days or here in the ER sooner for chest pain, difficulty breathing, neck stiffness, worsening signs or symptoms or as needed. By the evaluation outlined above emergent etiologies such as peritonsillar abscess, retropharyngeal abscess, otitis, pneumonia, meningitis, urinary tract infection, sepsis, bacteremia, as well as others were deemed relatively unlikely. The pt informed about the findings as listed above. All questions were answered and pleased with the treatment. Return instructions were outlined and the patient was discharged in stable condition. Referral: The patient was referred back to their primary care physician for follow-up in 2 to 3 days for a recheck of the current condition. Medical Decision as above Impression Primary Impression: Pharyngitis Departure Information Dispostion Home / Self-Care Condition GOOD Referrals Hung Cuevas MD (PCP) Patient Instructions My [facility] Additional Instructions Acetaminophen(Tylenol) may be used for fever or pain. Use 1000mg every six hours as needed. Avoid using more than 3000mg in a 24 hour period. (AND/OR) Ibuprofen(Motrin, Advil) may be used for fever or pain. Use 600mg every six hours as needed. Take with food. Avoid using more than 2400mg in a 24 hour period. Do not use 2400mg per day for more than three consecutive days without physician direction. Prolonged inappropriate use can lead to stomach upset or ulcers. Afrin nasal spray: 2-3 sprays to each nostril twice daily as needed for congestion. Do not use for more than 3-4 days because it can lead to worsening rebound congestion. Pseudoephedrine(Sudaphed): 30-60mg every 6 hours as needed for nasal congestion. Do not take this with other stimulant products or supplements. Rest and drink plenty of fluids. Controlling your fever with Tylenol and Ibuprofen as above will make you feel better. Wash your hands after nose blowing, sneezing, or coughing. Most germs are spread through contact, therefore improper hygiene may result in your close contacts and loved ones becoming ill just like you. Continue current medications. Return to the ER for severe headache, neck stiffness, chest pain, difficulty breathing, fevers, vomiting, worsening of your condition, or as needed. Follow up with your primary physician this week for a recheck of your current condition. Problem Qualifiers Primary Impression: Pharyngitis Pharyngitis/tonsillitis etiology: unspecified etiology Qualified Codes: J02.9 - Acute pharyngitis, unspecified
[2016-11-04 02:43] VITALS: BP 111/78; PULSE 85; O2SAT 97
[2016-11-04 04:18] LABS: INFLUENZA A PCR Neg for Influ A (NEG); INFLUENZA B PCR Neg for Influ B (NEG)
== END 2016-11-04 02:44 | disposition home or self-care (01) ==
LOC: C.EDB 00:54
DX: J02.9 Acute pharyngitis, unspecified (principal); Z87.891 Personal history of nicotine dependence

== ENCOUNTER 2017-10-01 19:59 | Emergency (ER) | payer OTHER ==
[~2017-10-01] VITALS: Ht 167.6 cm; Wt 116.3 kg
[~2017-10-01 19:59] MED LIST changes: -NICO14DI9 TOP; +NICO7DIS7 TD; -PANT40TA PO
[2017-10-01 20:06] VITALS: TEMP 37.4; Ht 167.6 cm; Wt 116.3 kg
--- NOTE | 2017-10-01 20:36 | EMERGENCY ROOM VISIT NOTE ---
History First contact with patient: 20:11 Chief Complaint: SORETHROAT Stated Complaint: SORE THROAT History of Present Illness The patient is a 47 year old male who presents to the Emergency Room with complaints of a sore throat. The patient reports that he has had a sore throat for the past 4-5 days. He states that typically when he gets a sore throat, it gets much worse within a few days and then goes away. He is concerned because his symptoms have lasted for so long. He reports some hoarseness of his voice which just started today. He reports he had some cough and nasal congestion which is resolving. He denies any fever/chills or difficulty swallowing. Review of Systems A complete 10 point review of systems was reviewed with the patient with pertinent positives and negatives as per history of present illness. All else were negative. Past Medical/Surgical History Medical Problems: (1) Bronchitis (2) H/O hysteria (3) Nasal septal deviation Family History Diabetes mellitus Hypertension Social History Smoking Status: Former Smoker Alcohol Use: none Drug Use: none Housing Status: lives alone Occupation Status: disabled Current/Historical Medications No Active Prescriptions or Reported Meds Physical Exam Vital Signs Date Time Temp Pulse Resp B/P (MAP) Pulse Ox O2 Delivery O2 Flow Rate FiO2 10/01/17 21:30 83 16 112/79 97 Room Air 10/01/17 21:03 92 16 111/69 97 Room Air 10/01/17 21:03 97 Room Air 10/01/17 20:06 37.4 99 18 134/87 97 Room Air Physical Exam VITALS: Vitals are noted on the nurse's note and reviewed by myself. Vital signs stable. GENERAL: This is a 47-year-old male, in no acute distress, nondiaphoretic, well- developed well-nourished. SKIN: The skin was without rashes. EARS: External auditory canals clear, tympanic membranes pearly allred without erythema or effusion bilaterally. EYES: Pupils equal round and reactive to light and accommodation. NOSE: Patent, turbinates without inflammation or discharge. MOUTH: Mucous membranes moist. Tonsils are not enlarged. Pharynx without erythema or exudate. NECK: Supple without nuchal rigidity. No lymphadenopathy. HEART: Regular rate and rhythm without murmurs gallops or rubs. LUNGS: Clear to auscultation bilaterally without wheezes, rales or rhonchi. NEURO: Patient was alert and oriented to person place and time. Medical Decision & Procedures ER Provider Diagnostic Interpretation: CHEST ONE VIEW PORTABLE CLINICAL HISTORY: 47 years-old Male presenting with chest pain. TECHNIQUE: Portable upright AP view of the chest was obtained. COMPARISON: 10/07/2016. FINDINGS: Atherosclerosis of aortic arch. Cardiac silhouette enlarged. Lungs and pleural spaces clear. Osseous structures normal. Upper abdomen normal. IMPRESSION: 1. Cardiomegaly. Otherwise no acute cardiopulmonary disease. Laboratory Results 10/01/17 21:05 Red Blood Count 4.95, Mean Corpuscular Volume 88.9, Mean Corpuscular Hemoglobin 30.9, Mean Corpuscular Hemoglobin Concent 34.8, Mean Platelet Volume 9.2, Neutrophils (%) (Auto) 64.8, Lymphocytes (%) (Auto) 25.0, Monocytes (%) (Auto) 7.7, Eosinophils (%) (Auto) 2.0, Basophils (%) (Auto) 0.3, Neutrophils # (Auto) 8.24, Lymphocytes # (Auto) 3.18, Monocytes # (Auto) 0.98, Eosinophils # (Auto) 0.25, Basophils # (Auto) 0.04 10/01/17 21:05 Test 10/01/17 21:05 10/01/17 21:13 White Blood Count 12.72 K/uL (4.8-10.8) Red Blood Count 4.95 M/uL (4.7-6.1) Hemoglobin 15.3 g/dL (14.0-18.0) Hematocrit 44.0 % (42-52) Mean Corpuscular Volume 88.9 fL (80-100) Mean Corpuscular Hemoglobin 30.9 pg (25-34) Mean Corpuscular Hemoglobin Concent 34.8 g/dl (32-36) Platelet Count 314 K/uL (130-400) Mean Platelet Volume 9.2 fL (7.4-10.4) Neutrophils (%) (Auto) 64.8 % Lymphocytes (%) (Auto) 25.0 % Monocytes (%) (Auto) 7.7 % Eosinophils (%) (Auto) 2.0 % Basophils (%) (Auto) 0.3 % Neutrophils # (Auto) 8.24 K/uL (1.4-6.5) Lymphocytes # (Auto) 3.18 K/uL (1.2-3.4) Monocytes # (Auto) 0.98 K/uL (0.11-0.59) Eosinophils # (Auto) 0.25 K/uL (0-0.5) Basophils # (Auto) 0.04 K/uL (0-0.2) RDW Standard Deviation 46.3 fL (36.4-46.3) RDW Coefficient of Variation 14.3 % (11.5-14.5) Immature Granulocyte % (Auto) 0.2 % Immature Granulocyte # (Auto) 0.03 K/uL (0.00-0.02) Anion Gap 6.0 mmol/L (3-11) Est Creatinine Clear Calc Drug Dose 157.5 ml/min Estimated GFR () 131.3 Estimated GFR (Non- 113.3 BUN/Creatinine Ratio 14.6 (10-20) Calcium Level 8.9 mg/dl (8.5-10.1) Total Bilirubin 0.7 mg/dl (0.2-1) Aspartate Amino Transf (AST/SGOT) 30 U/L (15-37) Alanine Aminotransferase (ALT/SGPT) 65 U/L (12-78) Alkaline Phosphatase 71 U/L (45-117) Total Protein 7.3 gm/dl (6.4-8.2) Albumin 3.5 gm/dl (3.4-5.0) Globulin 3.8 gm/dl (2.5-4.0) Albumin/Globulin Ratio 0.9 (0.9-2) Lyme Disease IgG Antibody NEG (NEG) Lyme Disease IgM Antibody NEG (NEG) Bedside Troponin I < 0.030 ng/ml (0-0.045) ECG Rate (beats per minute): 88 Rhythm: normal sinus Findings: no acute ischemic change, no ectopy Change: no significant change Medical Decision Differential diagnosis includes influenza, strep pharyngitis, upper respiratory infection, pneumonia, pericarditis, among others. The patient is a 47-year-old male who presents today complaining of sore throat. Initially, only a strep swab was obtained due to patient's complaint of sore throat. This was found to be negative. Patient then informed me that he has been having chest pain which he believes is due to breathing issues. He is very adamant that this is not caused by his heart. Further workup was obtained. Labs revealed mild leukocytosis which appears to be baseline for the patient after reviewing his previous visits. Labs were otherwise unremarkable. Patient requested Lyme serology. This was performed and was negative. Troponin was not elevated. EKG showed a normal sinus rhythm without ischemic changes. Chest x-ray showed no evidence of pneumonia. Patient was informed that his symptoms are likely secondary to a viral illness. Conservative measures were discussed. Based on the patient's presentation and work up, I feel the patient is stable for outpatient treatment. The patient was educated to return to the emergency department for any worsening of their current condition or new/concerning symptoms. He will follow up with his PCP. Medication Reconcilliation Current Medication List: was personally reviewed by me Blood Pressure Screening Patient's blood pressure: Normal blood pressure Impression Primary Impression: Viral illness Departure Information Dispostion Home / Self-Care Condition GOOD Prescriptions No Active Prescriptions or Reported Meds Referrals Hung Cuevas MD (PCP) Patient Instructions My [facility] Additional Instructions Your symptoms today are likely due to a viral illness. This does not require treatment with antibiotics and will run its course. For pain control, you can use the following [id number] medicines (if >12 yo): - Regular strength (325mg/tab) Tylenol (acetaminophen) 2 tabs every 4-6 hours as needed. Do not exceed 12 tablets in a 24 hour period. Avoid taking more than 4 grams (4000 mg) of Tylenol per day. This includes any other sources of acetaminophen you may take on a regular basis. - Regular strength (200 mg/tab) Advil (ibuprofen) 1-2 tabs every 4-6 hours as needed. Do not exceed a dose of 3200 mg per day. Rest and drink plenty of fluids. In addition to your prescribed medications, you can also use the following home remedies: - Warm salt-water gargles 3 times per day can soothe your throat and help to fight infection. - Warm tea with honey can soothe your throat. Return to the emergency department if your symptoms persist or worsen over the next 2-3 days despite treatment course outlined above. Return to the emergency department if you develop the following symptoms of: inability to swallow solids , liquids, or drool; excessive wheezing or inability to catch your breath; or intractable fever or pain. Follow up with your primary care provider in 2-3 days from today's emergency department visit.
[2017-10-01 21:03] VITALS: O2SAT 97
[2017-10-01 21:24] LABS: BASO % 0.3 %; BASO ABS # 0.04 K/uL (0-0.2); EOS ABS # 0.25 K/uL (0-0.5); HEMOGLOBIN 15.3 g/dL (14.0-18.0); IG# 0.03 K/uL (0.00-0.02); LYMPH ABS # 3.18 K/uL (1.2-3.4); MEAN CELL VOLUME 88.9 fL (80-100); MEAN CORPUSCULAR HEMOGLOBIN 30.9 pg (25-34); MEAN CORPUSCULAR HGB CONC 34.8 g/dl (32-36); MEAN PLATELET VOLUME 9.2 fL (7.4-10.4); MONO % 7.7 %; MONO ABS # 0.98 K/uL (0.11-0.59); NEUT % 64.8 %; NEUT ABS # 8.24 K/uL (1.4-6.5); PLATELET COUNT 314 K/uL (130-400); RED CELL DISTRIBUTION WIDTH CV 14.3 % (11.5-14.5); RED CELL DISTRIBUTION WIDTH SD 46.3 fL (36.4-46.3); WHITE BLOOD COUNT 12.72 K/uL (4.8-10.8)
--- NOTE | 2017-10-01 21:26 | DIAGNOSTIC IMAGING REPORT ---
CHEST ONE VIEW PORTABLE CLINICAL HISTORY: 47 years-old Male presenting with chest pain. TECHNIQUE: Portable upright AP view of the chest was obtained. COMPARISON: 10/07/2016. FINDINGS: Atherosclerosis of aortic arch. Cardiac silhouette enlarged. Lungs and pleural spaces clear. Osseous structures normal. Upper abdomen normal. IMPRESSION: 1. Cardiomegaly. Otherwise no acute cardiopulmonary disease. Electronically signed by: Du Samson M.D. 10/01/2017 9:24 PM Dictated Date/Time: 10/01/2017 9:23 PM
[2017-10-01 21:30] VITALS: BP 112/79; PULSE 83; O2SAT 97
[2017-10-01 21:40] LABS: ALBUMIN 3.5 gm/dl (3.4-5.0); CALCIUM 8.9 mg/dl (8.5-10.1); CREATININE 0.71 mg/dl (0.60-1.40); POTASSIUM 3.5 mmol/L (3.5-5.1)
[2017-10-01 21:43] LABS: TOTAL PROTEIN 7.3 gm/dl (6.4-8.2)
== END 2017-10-01 21:59 | disposition home or self-care (01) ==
LOC: C.EDB 20:01 → C.EDD 21:59
DX: R69 Illness, unspecified (principal); Z83.3 Family history of diabetes mellitus; Z82.49 Family history of ischemic heart disease and other diseases of the circulatory system; Z87.891 Personal history of nicotine dependence

== ENCOUNTER → 2017-12-09 | Outpatient (CLI) | payer OTHER ==
--- NOTE | 2017-12-09 14:53 | DIAGNOSTIC IMAGING REPORT ---
(RENAL)RETROPERITON COMP HISTORY: 47 years-old Male R30.0 DYSURIA, R31.9 HEMATURIA, UNSPECIFIED acute hematuria COMPARISON: CTA of the chest 10/07/2016, right upper quadrant ultrasound 08/23/2016. TECHNIQUE: Multiple real-time sonographic images of the kidneys and urinary bladder were obtained assessing grayscale appearance and color flow FINDINGS: Limited study secondary to patient body habitus. Increased echogenicity of the liver compatible with hepatic steatosis. Right kidney measures 11.3 x 5.9 x 5.5 cm and demonstrates no renal calculi or obstructive uropathy. Exophytic hypoechoic lesion of the interpolar right kidney measures 1.5 x 1.2 x 1.5 cm which appears unchanged from comparison contains minimal internal echogenicities, possibly reflecting a mildly, located renal cyst. No internal vascularity identified within this lesion. The left kidney measures 11.9 x 6.2 x 5.4 cm and is unremarkable without renal calculi, hydronephrosis or suspicious mass lesions. Urinary bladder is unremarkable. Bilateral ureteral jets however are not identified. IMPRESSION: 1. No renal calculi or hydronephrosis. 2. Hypoechoic exophytic lesion of the interpolar right kidney measuring up to 1.5 cm appears unchanged from comparison and may reflect a mildly complex cyst. 3. Hepatic steatosis. The above report was generated using voice recognition software. It may contain grammatical, syntax or spelling errors. Electronically signed by: Barrington Langley M.D. 12/09/2017 2:52 PM Dictated Date/Time: 12/09/2017 2:48 PM
== END | disposition home or self-care (01) ==
LOC: C.ULTR 13:59
PROVIDERS: ATTEND Student in an Organized Health Care Education/Training Program
DX: R31.9 Hematuria, unspecified (principal); R30.0 Dysuria; K76.0 Fatty (change of) liver, not elsewhere classified

== ENCOUNTER 2018-01-13 20:27 | Emergency (ER) | payer OTHER ==
[~2018-01-13] VITALS: Ht 167.6 cm; Wt 112.9 kg
[2018-01-13 20:29] VITALS: BP 128/87; PULSE 87; TEMP 37.2; O2SAT 93; Ht 167.6 cm; Wt 112.9 kg
--- NOTE | 2018-01-13 20:59 | EMERGENCY ROOM VISIT NOTE ---
ED Visit Note First contact with patient: 20:37 CHIEF COMPLAINT: Toothache HISTORY OF PRESENT ILLNESS: This 47-year-old male patient presented to the emergency department with a progressive toothache for past 2-1/2 weeks. The patient thinks that it is coming from his left upper molar. The patient saw two dentists today. He was told that the tooth needed to be pulled. He did not give him anything for pain. He denies any fever or chills. The pain is radiating up into his cheek. He has tried ibuprofen with minimal relief.. He rates his pain an 8/10. REVIEW OF SYSTEMS: A 6 system review of systems was completed with positives and pertinent negatives listed in the HPI. ALLERGIES: No known drug allergies MEDICATIONS: Personally reviewed PMH: Otherwise healthy SOCIAL HISTORY: He does not smoke or drink alcohol PHYSICAL EXAM: Vitals are noted on the nurse's note and reviewed by myself. Vital signs stable. Temperature 37.2C orally. GENERAL: 47-year-old male, in no acute distress, nondiaphoretic, well-developed well-nourished. Mouth: The left upper second bicuspid is fractured with an exposed filling. gum is swollen and tender around it, without any discharge or signs of an abscess. The remainder of the pharynx and tonsils are without erythema, edema, or exudate. The airway is patent. There mild facial swelling, cervical or submandibular lymphadenopathy. The patient appears uncomfortable and in pain. The patient has overall poor dental hygiene. EARS: External auditory canals clear, tympanic membranes pearly allred without erythema or effusion bilaterally. ED COURSE: The patient was seen and examined. The patient was given a dose of amoxicillin and a home pack of tramadol. Discharge instructions were thoroughly reviewed, and he was discharged in good condition DIAGNOSIS: Odontalgia DISCHARGE INSTRUCTIONS & TREATMENT: Please take the entire course of amoxicillin Please take ibuprofen 800 mg (4 [id number] tabs) every 8 hours as needed for pain. Do not exceed 2400 mg in a 24-hour period. Please take tramadol 1 tab every 4 hours as needed for severe pain. This may be taken in addition to/with ibuprofen Please follow-up with the dentist as scheduled Do not hesitate to return to the emergency department with any new, worsening or concerning symptoms It was a pleasure participating in your care this evening This chart was completed in part utilizing Dragon Speech Voice Recognition software. Attempts were made to minimize the grammatical errors, random word insertions, pronoun errors and incomplete sentences. Any formal questions or concerns about the content, text or information contained within the body of this dictation should be directly addressed to the provider for clarification.
[2018-01-13] MEDS ORDERED: AMOXICILLIN 250 MG CAP PO ONE (21:00)
[2018-01-13] MEDS ORDERED: TRAMADOL HCL 50 MG HOME PACK PO ONE (21:00)
[2018-01-14] MEDS ORDERED: TRAM-453 PO (14:59)
[2018-01-14] MEDS ORDERED: AMOX500C3 PO (14:59)
== END 2018-01-13 21:14 | disposition home or self-care (01) ==
LOC: C.EDB 20:28 → C.EDD 21:14
DX: K08.89 Other specified disorders of teeth and supporting structures (principal)